=== PATIENT | male | born 1995 | race Caucasian/White ===

== ENCOUNTER 2017-05-23 09:17 | Emergency (ER) | payer SELFPAY ==
[2017-05-23 09:21] VITALS: BP 149/79; BMI 22.4
[2017-05-23] MEDS ORDERED: NS 1000 ML 1,000 ML IV ONE (09:44)
[2017-05-23] MEDS ORDERED: ZOFRAN INJ 4 MG VIAL IVP ONE (09:44)
[2017-05-23] MEDS ORDERED: PEPCID 20 MG IV PREMIX* 20 MG/50 ML BAG IV ONE (09:44)
[2017-05-23] MEDS ORDERED: MORPHINE SULFATE INJ 4 MG IVP ONE (09:44)
--- NOTE | 2017-05-23 09:44 | DR.EXTPAIN ---
HPI - Time seen Time seen: 09:45 - PCP Primary Care Physician: MARBELLA - HPI Comment HPI Comment: WOKE UP THIS AM WITH PAIN RIGHT SHOULDER AND DIFFICULTY MOVING RT SHOULDER. NO OBVIOUS INJURY. - Complaint/Symptoms Chief Complaint Doctor Comments: RIGHT SHOULDER PAIN FOR SEVERAL HOURS. Chief Complaint:: PT. C/O RIGHT SHOULDER PAIN. DENIES INJURY. PT. STATES HE THOUGHT HE SLEPT ON IT WRONG BUT WENT TO WORK THIS MORNING AND THE PAIN WAS STILL THERE. - Nurses notes reviewed Nurses Notes Review: Yes - Source History Provided: Patient - Mode of arrival Mode of Arrival: Ambulatory - Timing Onset of Chief Complaint: 05/22/17 - Context History of: None - Associated signs and symptoms Associated Signs and Symptoms: Pain PMH - PMH Past Medical History: No Past Surgical History: No Surgical History: No History - Family History History of Family Medical Conditions: No - Social History Does patient currently use any type of tobacco product: Yes Have you used tobacco products in the last 12 months: Yes Type of Tobacco Use: Cigarettes Does any household member use tobacco: No Alcohol Use: Occasionally Do you use any recreational Drugs:: No Lives With: Significant Other Lives Where: Home - infectious screening In the last 2 months have you had wt loss of >10#?: NO Have you had fever, night sweats or hemotysis?: No Have you traveled outside the country in the last 6 months?: No Isolation: Standard ROS - Review of Systems Constitutional: No Symptoms Reported Eyes: No Symptoms Reported ENTM: No Symptoms Reported Respiratoy: No Symptoms Reported Cardiovascular: No Symptoms Reported Gastrointestinal/Abdominal: No Symptoms Reported Genitourinary: No Symptoms Reported Neurological: No Symptoms Reported Musculoskeletal: Right, Shoulder Integumentary: No Symptoms Reported Hematologic/Lymphatic: No Symptoms Reported Endocrine: No Symptoms Reported All Other Systems: Reviewed and Negative PE - Vital Signs Vitals: Temperature 98.3 F Pulse Rate 52 Respiratory Rate 17 Blood Pressure 149/79 O2 Sat by Pulse Oximetry 98 - General Limitations: No Limitations General Appearance: Alert - Head Head Exam: Normal Inspection - Eyes Eye exam: Normal Appearance - ENT ENT Exam: Normal External Ear Exam - Neck Neck Exam: Normal Inspection - Chest Chest Inspection: Symmetric Chest Wall Rise - Respiratory Respiratory Exam: Normal Lung Sounds Bilat Respiratory Exam: Bilateral Clear to Auscultation - Cardiovascular Cardiovascular Exam: Regular Rate, Normal Rhythm, Normal Heart Sounds - Abdominal Exam Abdominal Exam: Normal Bowel Sounds, Soft. negative: Tenderness - Extremities Extremities Exam: Tenderness (RIGHT SHOULDER TENDER.). negative: Full ROM (ROM DECREASE.) - Lower Extremities Neurovascular/Tendon Exam: Normal Capillary Refill Gait Exam: Observed and Normal - Back Back Exam: Normal Inspection - Neurological Neurological Exam: Alert, Oriented X3 - Psychiatric Psychiatric Exam: Normal Affect, Normal Mood - Skin Skin Exam: Normal Color MDM - Differential Diagnosis Differential Diagnosis: Fracture (RT SHOULDER), Sprain (RT SHOULDER.) Course - Treatment Treatment: SEE ORDERS. - Education/Counseling Education/Counseling: Patient, Education Educated On: Diagnosis, Needs for Follow Up ROR - XRAY XRAY Interpreted by: Self XRAY Findings: XRAY , NORMAL FINDINGS DISCUSS WITH PATIENT. - Diagnosis Discharge Problem: Sprain of right shoulder Qualifiers: Encounter type: initial encounter Shoulder sprain type: unspecified sprain Qualified Code(s): S43.401A - Unspecified sprain of right shoulder joint, initial encounter - Discharge Plan Condition: Stable Prescriptions: Cyclobenzaprine HCl [FLEXERIL 10 MG *] 10 mg PO TID PRN #20 tab PRN Reason: Ibuprofen [MOTRIN TAB 800 MG *] 800 mg PO Q8H PRN #20 tab PRN Reason: Pain/Inflammation - Follow ups/Referrals Follow ups/Referrals: NFD,None [Primary Care Provider] - 1 day Jaya Leal [STAFF PHYSICIAN] - 1 day - Instructions Instructions: Shoulder Sprain Additional Instructions: RETURN TO ED IF WORSE.
--- NOTE | 2017-05-23 11:07 | RAD ---
HISTORY: Nontraumatic right shoulder pain Study: Right shoulder internal, external, Y-view Comparison: None Findings: The appearance of the clavicle and AC joint are unremarkable. The glenohumeral articulation is anna l in its appearance. No acute cortical disruption or dislocation can be identified. The visualized portions of the scapula are unremarkable. In addition, the visualized portions of the right hemithor ax appear normal. IMPRESSION: 1. Negative exam. Reported By:
== END 2017-05-23 10:50 | disposition home or self-care (01) ==
LOC: ER 09:25
DX: S43.401A Unspecified sprain of right shoulder joint, initial encounter (principal); Y33.XXXA Other specified events, undetermined intent, initial encounter; Y92.9 Unspecified place or not applicable
CPT/HCPCS: 73030; 99282

== ENCOUNTER 2017-11-04 02:54 | Emergency (ER) | payer SELFPAY ==
[2017-11-04 03:06] VITALS: BP 142/71; BMI 24.2
--- NOTE | 2017-11-04 03:06 | DR.GENAD ---
HPI - PCP Primary Care Physician: MARBELLA - HPI Comment HPI Comment: PATIENT IS WEAK AND DIZZY. NO FEVER OR DYSURIA. WORSE TODAY. - Complaint/Symptoms Chief Complaint Doctors Comments: N/V/D TIMES 2 DAYS WITH LOWER ABDOMINAL PAIN TIMES 2 DAYS. Chief Complaint:: N/V/D FOR 2 DAYS, LOWER ABD PAIN. - Nurses notes reviewed Nurses Notes Review: Yes - Source History Provided: Patient - Mode of Arrival Mode of Arrival: Ambulatory - Timing Onset of Chief Complaint: 11/02/16 Came on: Suddenly - Duration Duration: Days - Severity Severity: Moderate PMH - PMH Past Medical History: No Past Surgical History: No Surgical History: No History - Family History History of Family Medical Conditions: No - Social History Type of Tobacco Use: Cigarettes Alcohol Use: None Do you use any recreational Drugs:: No Lives Where: Home - infectious screening Have you traveled outside the country in the last 6 months?: No Isolation: Standard ROS - Review of Systems Constitutional: Weakness, Fatigue. negative: Fever Eyes: No Symptoms Reported. negative: Eye Pain, Discharge ENTM: Nose Congestion. negative: Ear Pain, Nose Discharge, Throat Pain Respiratoy: negative: Productive Cough, Non-Productive Cough, Short of Breath, Wheezing, Hemoptysis Cardiovascular: No Symptoms Reported Gastrointestinal/Abdominal: Abdominal Pain, Diarrhea, Nausea, Vomiting Genitourinary: Discharge. negative: Dysuria, Frequency, Hematuria Neurological: Headache, Weakness, Dizziness Musculoskeletal: Muscle Pain Integumentary: No Symptoms Reported Hematologic/Lymphatic: No Symptoms Reported Endocrine: No Symptoms Reported All Other Systems: Reviewed and Negative PE - Vital Signs Vitals: Temperature 99.7 F Pulse Rate 41 Respiratory Rate 16 Blood Pressure 142/71 O2 Sat by Pulse Oximetry 98 - General Limitations: No Limitations General Appearance: Alert - Head Head Exam: Normal Inspection - Eyes Eye exam: Normal Appearance, PERRL, EOMI - ENT ENT Exam: Normal External Ear Exam External Ear Exam: Normal External Inspection TM/Canal Exam: Bilateral Normal Nose Exam: Normal Nose Exam Mouth Exam: Normal Inspection Throat Exam: Normal Inspection - Neck Neck Exam: Trachea Midline - Chest Chest Inspection: Symmetric Chest Wall Rise - Respiratory Respiratory Exam: Normal Lung Sounds Bilat Respiratory Exam: Bilateral Clear to Auscultation - Cardiovascular Cardiovascular Exam: Regular Rate, Normal Rhythm, Normal Heart Sounds - Abdominal Exam Abdominal Exam: Normal Bowel Sounds, Soft, Tenderness Abdominal Tenderness: Diffuse, Mild - Back Back Exam: Normal Inspection - Neurologic Neurological Exam: Alert, Oriented X3 - Psychiatric Psychiatric Exam: Normal Affect, Normal Mood - Skin Skin Exam: Normal Color MDM - Additional Information Additional Information Obtained From: Family - Differential Diagnosis Differential Diagnosis: GASTROENETRITIS, UTI, DEHYDRATION Course - Treatment Treatment: IV FLUID AND IV ZOFRAN IN ED. - Reevaluation 1st: Improved - Education/Counseling Education/Counseling: Patient, Family, Education Educated On: Diagnosis, Needs for Follow Up ROR - Labs Reviewed Laboratory Results Reviewed?: Yes Result Diagrams: 11/04/17 03:30 11/04/17 03:30 Laboratory: WBC 8.5 X10^3/uL (3.6-10.0) 11/04/17 03:30 RBC 4.68 X10^6/uL (4.7-6.0) L 11/04/17 03:30 Hgb 14.4 g/dL (13.5-18.0) 11/04/17 03:30 Hct 41.3 % (42.0-54.0) L 11/04/17 03:30 MCV 88.2 fL (80.0-100.0) 11/04/17 03:30 MCH 30.7 pg (27.0-34.0) 11/04/17 03:30 MCHC 34.9 g/dL (33.0-35.0) 11/04/17 03:30 RDW 12.5 % (11.6-16.5) 11/04/17 03:30 Plt Count 184 X10^3/uL (150.0-450.0) 11/04/17 03:30 MPV 9.2 fL (7.4-11.0) 11/04/17 03:30 Neut % (Auto) 66.7 % (42.0-75.0) 11/04/17 03:30 Lymph % (Auto) 25.3 % (21.0-51.0) 11/04/17 03:30 [place] % (Auto) 5.8 % (0.0-13.0) 11/04/17 03:30 Eos % (Auto) 1.5 % (0.9-2.9) 11/04/17 03:30 Baso % (Auto) 0.7 % (0.2-1.0) 11/04/17 03:30 Neut # (Auto) 5.7 x10^3/uL (2.2-4.8) H 11/04/17 03:30 Lymph # (Auto) 2.2 X10^3/uL (1.3-2.9) 11/04/17 03:30 [place] # (Auto) 0.5 x10^3/uL (0.3-0.8) 11/04/17 03:30 Eos # (Auto) 0.1 x10^3/uL (0.0-0.2) 11/04/17 03:30 Baso # (Auto) 0.1 X10^3/uL (0.0-0.1) 11/04/17 03:30 Absolute Nucleated RBC 0.0 /100WBC 11/04/17 03:30 Sodium 141 mmol/L (136-145) 11/04/17 03:30 Corrected Sodium 142 mmol/L (136-145) 11/04/17 03:30 Potassium 4.1 mmol/L (3.5-5.1) 11/04/17 03:30 Chloride 104 mmol/L (98-107) 11/04/17 03:30 Carbon Dioxide 29.3 mmol/L (21-32) 11/04/17 03:30 BUN 13 mg/dL (7-18) 11/04/17 03:30 Creatinine 1.03 mg/dL (0.70-1.30) 11/04/17 03:30 Est GFR (MDRD) Af Amer > 60 (>60) 11/04/17 03:30 Est GFR (MDRD) Non-Af > 60 (>60) 11/04/17 03:30 Glucose 123 mg/dL (65-99) H 11/04/17 03:30 Calcium 9.1 mg/dL (8.5-10.1) 11/04/17 03:30 Corrected Calcium TNP 11/04/17 03:30 Total Bilirubin 1.00 mg/dL (0.2-1.0) 11/04/17 03:30 AST 13 Units/L (15-37) L 11/04/17 03:30 ALT 25 Units/L (12-78) 11/04/17 03:30 Alkaline Phosphatase 80 Units/L (46-116) 11/04/17 03:30 Total Protein 7.9 g/dL (6.4-8.2) 11/04/17 03:30 Albumin 4.4 g/dL (3.4-5.0) 11/04/17 03:30 Globulin 3.5 g/dL (2.5-4.5) 11/04/17 03:30 Albumin/Globulin Ratio 1.3 Ratio (1.1-2.1) 11/04/17 03:30 Amylase 56 Units/L (25-115) 11/04/17 03:30 Lipase 65 Units/L (73-393) L 11/04/17 03:30 Specimen Type Clean catch urine 11/04/17 03:02 Urine Color Yellow (YELLOW) 11/04/17 03:02 Urine Appearance Cloudy (CLEAR) 11/04/17 03:02 Urine pH 6.5 (5.0 - 8.0) 11/04/17 03:02 Ur Specific [place] 1.020 (1.000-1.030) 11/04/17 03:02 Urine Protein 2+ (NEGATIVE) 11/04/17 03:02 Urine Glucose (UA) Negative (NEGATIVE) 11/04/17 03:02 Urine Ketones Negative (NEGATIVE) 11/04/17 03:02 Urine Occult Blood 1+ (NEGATIVE) 11/04/17 03:02 Urine Nitrite Negative (NEGATIVE) 11/04/17 03:02 Urine Bilirubin Negative (NEGATIVE) 11/04/17 03:02 Urine Urobilinogen Normal (NORMAL) 11/04/17 03:02 Ur Leukocyte Esterase 2+ (NEGATIVE) 11/04/17 03:02 Urine RBC 3-5 /HPF (NONE SEEN) 11/04/17 03:02 Urine WBC 3-5 /HPF (NONE SEEN) 11/04/17 03:02 Ur Squamous Epith Cells Moderate /HPF (NEGATIVE) 11/04/17 03:02 Urine Bacteria 1+ /HPF (NEGATIVE) 11/04/17 03:02 Urine Trichomonas Many /HPF (NEGATIVE) 11/04/17 03:02 Ur Culture Indicated? No/not indicated 11/04/17 03:02 - XRAY XRAY Interpreted by: Radiologist XRAY Findings: REPORT DISCUSS WITH PATIENT. - Diagnosis Discharge Problem: Gastroenteritis, Trichomoniasis - Discharge Plan Disposition: 01 HOME, SELF-CARE Condition: Stable Prescriptions: Diphenoxylate/Atropine [Lomotil] 1 tab PO TID PRN #15 tab PRN Reason: Metronidazole [Flagyl Tab 500 mg] 500 mg PO DAILY #30 tab Ondansetron [Zofran ODT 8 mg] 8 mg PO Q8H PRN #12 tab PRN Reason: Nausea/Vomiting - Follow ups/Referrals Follow ups/Referrals: MARBELLA,Jazmin [Primary Care Provider] - 2 days SWATI ZAMUDIO [STAFF PHYSICIAN] - 2 days - Instructions Instructions: Viral Gastroenteritis, Adult, [id number], Trichomoniasis Additional Instructions: RETURN TO ED IF WORSE.
[2017-11-04 03:27] LABS: BILIRUBIN,URINE NEGATIVE (NEGATIVE); BLOOD/HEMOGLOBIN,URINE 1+ (NEGATIVE); GLUCOSE, URINE NEGATIVE (NEGATIVE); KETONES,URINE NEGATIVE (NEGATIVE); LEUKOCYTE ESTERASE ,URINE 2+ (NEGATIVE); NITRITES,URINE NEGATIVE (NEGATIVE); PH,URINE 6.5 (5.0 - 8.0); PROTEIN,URINE 2+ (NEGATIVE); UROBILINOGEN,URINE NORMAL (NORMAL)
[2017-11-04] MEDS ORDERED: NS 1000 ML 1,000 ML IV ONE (03:29)
[2017-11-04] MEDS ORDERED: ZOFRAN INJ 4 MG VIAL IVP ONE (03:29)
[2017-11-04 03:38] LABS: APPEARANCE,URINE CLOUDY (CLEAR); COLOR,URINE YELLOW (YELLOW)
[2017-11-04 03:39] LABS: BACTERIA,URINE 1+ /HPF (NEGATIVE); SQUAMOUS EPITHELIAL CELL,UR MODERATE /HPF (NEGATIVE); TRICHOMONAS,URINE MANY /HPF (NEGATIVE)
[2017-11-04 03:44] LABS: BASOPHILS # (AUTO) 0.1 X10^3/uL (0.0-0.1); BASOPHILS % (AUTO) 0.7 % (0.2-1.0); EOSINOPHILS # (AUTO) 0.1 x10^3/uL (0.0-0.2); EOSINOPHILS % (AUTO) 1.5 % (0.9-2.9); HEMATOCRIT 41.3 % (42.0-54.0); HEMOGLOBIN 14.4 g/dL (13.5-18.0); LYMPHOCYTES # (AUTO) 2.2 X10^3/uL (1.3-2.9); LYMPHOCYTES % (AUTO) 25.3 % (21.0-51.0); MEAN CORPUSCULAR HEMOGLOBIN 30.7 pg (27.0-34.0); MEAN CORPUSCULAR HGB CONC 34.9 g/dL (33.0-35.0); MEAN CORPUSCULAR VOLUME 88.2 fL (80.0-100.0); MEAN PLATELET VOLUME 9.2 fL (7.4-11.0); MONOCYTES # (AUTO) 0.5 x10^3/uL (0.3-0.8); MONOCYTES % (AUTO) 5.8 % (0.0-13.0); NEUTROPHILS # (AUTO) 5.7 x10^3/uL (2.2-4.8); NEUTROPHILS % (AUTO) 66.7 % (42.0-75.0); PLATELET COUNT 184 X10^3/uL (150.0-450.0); RED BLOOD COUNT 4.68 X10^6/uL (4.7-6.0); RED CELL DISTRIBUTION WIDTH 12.5 % (11.6-16.5); WHITE BLOOD COUNT 8.5 X10^3/uL (3.6-10.0)
[2017-11-04] MEDS ORDERED: NS 1000 ML 1,000 ML ONE (03:47)
[2017-11-04] MEDS ORDERED: ZOFRAN INJ 4 MG VIAL ONE (03:47)
[2017-11-04 03:51] LABS: ALANINE AMINOTRANSFERASE 25 Units/L (12-78); ALBUMIN 4.4 g/dL (3.4-5.0); ALKALINE PHOSPHATASE 80 Units/L (46-116); AMYLASE 56 Units/L (25-115); ASPARTATE AMINO TRANSFERASE 13 Units/L (15-37); BLOOD UREA NITROGEN 13 mg/dL (7-18); CALCIUM 9.1 mg/dL (8.5-10.1); CARBON DIOXIDE 29.3 mmol/L (21-32); CHLORIDE 104 mmol/L (98-107); COR NA(FOR HYPERGLY) 142 mmol/L (136-145); CREATININE 1.03 mg/dL (0.70-1.30); LIPASE 65 Units/L (73-393); SODIUM 141 mmol/L (136-145); TOTAL PROTEIN 7.9 g/dL (6.4-8.2); eGFR BLACK RACES > 60 (>60); eGFR NON BLACK RACES > 60 (>60)
--- NOTE | 2017-11-04 03:54 | RAD ---
Acute abdomen series three views supine, upright and chest Indication: Abdominal pain with nausea and vomiting Findings: There is no pneumothorax, effusion or consolidation. Heart size is normal. No free air or p neumatosis seen. Gas and stool seen in the colon. No abnormal calcific density identified. Impression: No acute abnormality. Reported By:
== END 2017-11-04 05:05 | disposition home or self-care (01) ==
LOC: ER 02:54
DX: K52.89 Other specified noninfective gastroenteritis and colitis (principal); A59.9 Trichomoniasis, unspecified
CPT/HCPCS: 36415; 74022; 80053; 81001; 82150; 83690; 85025; 96365; 96367; 96374; 99283; 99285; A4222; J2405